=== PATIENT | male | born 1945 | race Caucasian/White ===

== ENCOUNTER → 2018-02-16 06:40 | Outpatient (CLI) | payer MEDICARE, OTHER, SELFPAY ==
--- NOTE | 2018-02-16 06:44 | CT_ITS ---
HEMATURIA SINCE THURSDAY, UNABLE TO URINATE-JUST HAD BLOOD CLOTS, DR TOOK HIM OFF ASPIRIN, HAS ANSARI CATHETER SINCE THURSDAY, SURG-LUIS CARLOS, RT INGUINAL HERNIA REPAIR. HX-HTN. TECHNIQUE: Helically acquired images were obtained through the abdomen both before and after IV contrast, using the CT urogram protocol. CT pelvis imaging performed following IV contrast injection. Delayed excretory images were obtained. 2D and 3D reformats were performed. A radiation dose optimization technique was used for this scan. IV Contrast dosage and agent: 100 cc Isovue-300 contrast COMPARISON: None FINDINGS: Both kidneys are normal in position. One-2 mm tiny calyceal stone at the upper pole of the left kidney. With contrast injection, bilateral renal excretion of contrast without evidence of hydronephrosis or suspicious renal lesion. Multiple bilateral small parapelvic renal cysts. Adrenal glands are not enlarged. Lung bases: Right middle lobe tiny calcified granuloma. No pleural effusion. Cholecystectomy. No biliary dilatation. The liver, spleen, and pancreas show no CT abnormality. Abdominal aorta is atherosclerotic and is normal in caliber. IVC is patent. No ascites or retroperitoneal lymphadenopathy. GI tract: No obstruction Pelvis: Ansari balloon catheter in place with circumferential thickening of the urinary bladder wall which measures approximately 2.5 cm in diameter. Possible bladder tumor. The urinary bladder, in addition, shows bilateral diverticula measuring approximately 8.8 x 4.4 cm on the right and 3.4 x 3.7 cm on the left. The bladder wall diverticula do not show corresponding mural thickening. The right-sided diverticulum shows dependent debris, likely blood clots The prostate shows no significant enlargement. The pelvis shows no free fluid or lymphadenopathy. Fat-containing left inguinal hernia. Ventral wall: Fat-containing umbilical hernia and the hernia sac also shows a circumscribed cyst like structure which measures 2.4 cm in maximal dimension. CT/CT Abd/Pelvis W/WO Contrast IMPRESSION: 1. Ansari balloon catheter with circumferential mural thickening of the urinary bladder. Possible bladder wall tumor. 2. Bilateral bladder wall diverticula, larger on the right, with probable dependent blood clots within the right side diverticulum. Bilateral diverticula, however, do not show mural thickening as with the remaining bladder. 3. Left renal tiny 1-2 mm stone. Negative for hydronephrosis or hydroureter. 4. Umbilical and left inguinal hernias. Details above. Individualized dose optimization techniques were used for this CT. at 0752 Reported and signed by: Donte Horta MD Electronically Signed: Donte Horta, at 7:50 EST Tel , Service support ,
[2018-02-16 07:00] LABS: CREATININE FINGERSTICK 0.9 mg/dL (0.70-1.30); EGFR FINGERSTICK > 60.0000 mL/min (>60)
== END ==
PROVIDERS: Family Provider Family Medicine; PCP Family Medicine; Referring Provider Urology; Visit Provider Urology
DX: R31.0 Gross hematuria (principal)
CPT/HCPCS: 74178; Q9967

== ENCOUNTER → 2018-02-23 16:32 | Outpatient (CLI) | payer MEDICARE, SELFPAY | PROVIDERS: Family Provider Family Medicine; PCP Family Medicine; Referring Provider Urology; Visit Provider Urology | DX: R31.9 Hematuria, unspecified (principal) | CPT/HCPCS: 87086; 87088; 87186 ==

== ENCOUNTER 2018-03-12 09:34 | Inpatient (IN) | payer MEDICARE, OTHER, SELFPAY ==
[2018-03-09 10:14] VITALS: BP 129/80; PULSE 56; RESP 16; TEMP 36.6; O2SAT 98; BMI 34.0
--- NOTE | 2018-03-09 10:28 | SDCEKG_ITS ---
Test Reason : Blood Pressure : / mmHG Vent. Rate : 057 BPM Atrial Rate : 057 BPM P-R Int : 194 ms QRS Dur : 084 ms QT Int : 432 ms P-R-T Axes : -05 -39 -03 degrees QTc Int : 420 ms Sinus bradycardia Left axis deviation Abnormal ECG Confirmed by RAMONA PEREZ, JAY ([id number]), index editor MERCY FAJARDO ([id number]) on 03/12/2018 2:50:19 PM Referred By: Josemanuel Block Confirmed By:JAY GREENE MD
[2018-03-09 11:40] LABS: Hematocrit 40.7 % (40-54); Hemoglobin 13.3 g/dl (13.0-16.5); Mean Corp Hgb Conc 32.7 g/gl (32-36); Mean Corpuscular Hgb 28.4 pg (27.0-32.0); Mean Platelet Vol. 8.9 fl (6.2-12.0); Platelet Count 360 K/mm3 (150-450); RBC Distribution Width SD 44.5 fl (35.1-43.9); Red Blood Count 4.68 M/mm3 (4.6-6.2); Scan Indicated on CBC? Y/N NO; White Blood Count 11.6 K/mm3 (4.4-11.0)
[2018-03-09 12:04] LABS: Anion Gap 7 (5-15); BUN 20 mg/dL (7-18); BUN/Creat Ratio 22.3 RATIO (10-20); Calcium,Total 8.1 mg/dL (8.5-10.1); Chloride 105 mmol/L (98-107); EST Glomerular Filtration Rate 88 mL/min (>60); Est Glom Filt Rate - Afr Amer 107 mL/min (>60); Glucose 105 mg/dL (74-106); Sodium Level 138 mmol/L (136-145)
[2018-03-12] VITALS (9 sets, daily range): BP systolic 95–141; BP diastolic 66–90; PULSE 58–68; RESP 16–18; TEMP 36.2–36.5; O2SAT 93–97; BMI 34.0
[2018-03-12 10:28] LABS: Anion Gap 7 (5-15); BUN 13 mg/dL (7-18); BUN/Creat Ratio 13.7 RATIO (10-20); Calcium,Total 8.3 mg/dL (8.5-10.1); Chloride 103 mmol/L (98-107); Creatinine, Serum 0.95 mg/dL (0.70-1.30); EST Glomerular Filtration Rate 83 mL/min (>60); Est Glom Filt Rate - Afr Amer 101 mL/min (>60); Estimated Creatinine Clearance 72.57 ml/min; Glucose 112 mg/dL (74-106); Potassium 3.9 mmol/L (3.5-5.1); Sodium Level 138 mmol/L (136-145)
--- NOTE | 2018-03-12 12:00 | PROS_PTH ---
PATIENT: SUMAYA JIMENEZ LOC: MS3 U#:[id number] AGE/SX: 72/M ROOM: [facility] [place] RE03/12/[address]: Dr. Josemanuel Block MD : [id number] BED: 1 DIS: 03/14/2018 SPEC #: [id number] RECD: 03/15/18 09:05 STATUS: ADOLFO DON #: [id number] RADHA: 03/12/18 12:[address]: Josemanuel Block DEPT: SURGICAL PATHOLOGY RECD BY: Nick Conner ENTERED: 03/15/18 12:53 SP TYPE: TURP OTHR DR: Dr. Niraj Segovia MD Tissues: B - Prostate, NOS A - Urinary bladder, NOS Procedures: Surgery Specimen Level IV HEADER OPERATION: Laparoscopic robotic assisted simple prostatectomy PRE-OP DIAGNOSIS: Diverticulum of bladder, BPH with lower urinary tract symptoms TISSUE SUBMITTED: A - Bladder diverticulum, B - Prostate tissue MICROSCOPIC DIAGNOSIS A. Urinary bladder diverticulum, excision: Urothelium lined cyst with associated mild chronic inflammation consistent with diverticulum. B. Prostate, biopsy: Fibromuscular tissue with mild chronic inflammation. No evidence of malignancy. AM:duncan 03/16/18 MICROSCOPIC DESCRIPTION Slides are reviewed. GROSS DESCRIPTION A - Received in fixative is one container labeled with the patient's name and designated bladder diverticulum. The specimen consists of two irregular fragments of pink-worrell saccular soft tissue that in aggregate measure 8 x 6 x 1.5 cm. Serial sections do not reveal distinct nodular mass lesions. Veterans' Coordinator sections are submitted in three cassettes. B - Received in fixative is one container labeled with the patient's name and designated prostate tissue. The specimen consists of two irregular fragments of rubbery light to dark worrell soft tissue that in aggregate measure 3 x 2.5 x 1.5 cm. Sections reveal homogenous worrell, cut surfaces. No mass lesions are identified. Both fragments are sectioned and submitted in its entirety in two cassettes. / AM:duncan 03/15/18 TC:3 CPT: 67585 x2
[2018-03-12] MEDS: Cefazolin 2 GM in 0.9% Normal Saline 100 ML IV (12:36)
[2018-03-12] MEDS: Bupivacaine Mpf 0.5% 30 ML VIAL (16:14)
--- NOTE | 2018-03-12 16:18 | OP.PCM_ITS ---
Report of Operation Date of Procedure: 03/12/18 Pre-Operative Diagnosis: BPH with obstruction large bladder diverticulum x2 Post-Operative Diagnosis: The same Surgery/Procedure Performed:: Laparoscopic robotic assisted removal of bladder diverticulum x2 and simple prostatectomy, right ureteral cath placement. Description of Surgical Findings:: 72-year-old male was found to have a very large bladder diverticulum on the right side of the bladder and also left side of the bladder on cystoscopy was found to have a very scarred down urethral channel he had a prior TURP long time ago. Because of this I recommended we undergo a laparoscopic robotic diverticulectomy to remove both the diverticulum's that are holding the stagnant urine causing infections and also to resect the prostate open and to do a simple enucleation of the small prostate. 72-year-old male taken back to the operating room at the smooth induction of general anesthesia he was placed supine on the table, his abdomen was shaved and prepped and draped in usual sterile fashion, he was placed in dorsolithotomy position, I then infiltrated the skin with lidocaine, advanced the Veress needle after making an incision in the skin into the peritoneal cavity, insufflated the peritoneal cavity CO2 gas, we then placed our camera right and left arm trochars emergency veterinary assistant trocar suction trocar and air seal port. I then dissected the sigmoid colon off the lateral wall. I then placed a 20 Nauruan catheter into the bladder we filled the bladder up with saline and he could see a large diverticulum in the right side of the bladder dissected onto this large diverticulum and very carefully dissected all the way to the bladder and then encountered the diverticulum it was a very large diverticulum did not have to remove the entire mucosa just dissected to the neck of the diverticulum and circumferentially around the neck of the diverticulum the right side. The diverticulum itself is quite larger than the bladder capacity. After doing this then I incised the bladder in the midline clamshell in the bladder open then I tacked the bladder open with stitches and then inside identified the ureteral orifice cannulated the ureters with a Glidewire and was effluxing clear urine there is no injury to the left ureteral orifice or the right ureteral orifice or the right ureter. I then closed the diverticulum inside the bladder with interrupted 2-0 Vicryl stitches. I then proceeded with the prostate he had a very small prostate very scarred in prostate basically I excised the prostate adenoma enucleated this very carefully from the prostate very short distance scarred in quite well circumferentially dissected all the way around the urethra until I got the scar tissue and the prostate tissue out and then identified the urethral channel. Sphincter was left intact I then reapproximated the mucosa edges down to the to the urethra in order to prevent another bladder neck contracture once this was accomplished and he had a nice channel wide open channel through the prostate and it appeared to be proximal to the sphincter with with making sure that the sphincter had been spared and dissected out the prostate tissue. I then closed the bladder clamshell and then filled the bladder back up and immediately recognized the large diverticulum off the left side of the bladder then dissected the bladder diverticulum of the left side this is taken off completely until I found the neck going into the bladder excised the neck and then handed off the tissue and then we closed the diverticular neck with interrupted V lock stitches after completing this we had excised both the right and left large bladder diverticulum we did a excised the scar tissue and prosthetic tissue and and and brought the mucosal edges down to the sphincter the catheter was in place we closed the Dung Pickering stitch using Cardizem stitch to close the 10 12 trocar site and the umbilical site we left the drain in place to catch as any excess fluid in the abdomen patient anesthetic was reversed and currently is still in anesthesia still having his anesthesia reversed. Type of Anesthesia:: General Drains: cummingsSHIRIN - Admit VTE Documentation VTE Present on Admission: No VTE Mechan Device Prophylaxis: SCD's
[2018-03-12] MEDS: 0.45% Normal Saline 1,000 ML 125 ML IV (18:13)
[2018-03-12] MEDS: Ketorolac 15 MG/ML Vial IV ×2 (18:14→23:01)
[2018-03-12] MEDS: Morphine 2 MG/ML Syringe IV ×2 (19:01→21:11)
[2018-03-12] MEDS: Docusate Sodium 100 MG Capsule PO (21:11)
[2018-03-12] MEDS: Ciprofloxacin 400 MG/200 ML BAG 200 MG IV (21:11)
[2018-03-13] MEDS: 0.45% Normal Saline 1,000 ML 125 ML IV (02:23)
[2018-03-13 02:24] VITALS: BP 100/62; PULSE 60; RESP 18; TEMP 37; O2SAT 95
[2018-03-13] MEDS: Ketorolac 15 MG/ML Vial IV ×3 (05:57→21:23)
[2018-03-13] MEDS: Enoxaparin 40 MG/0.4 ML Syringe SC (05:57)
[2018-03-13] MEDS: Morphine 2 MG/ML Syringe IV (07:29)
[2018-03-13 09:12] VITALS: BP 94/56; PULSE 63; RESP 16; TEMP 36.6; O2SAT 93
[2018-03-13] MEDS: Pantoprazole Sodium 20 MG Tablet PO (09:44)
[2018-03-13] MEDS: Docusate Sodium 100 MG Capsule PO ×2 (09:44→21:21)
[2018-03-13] MEDS: Ciprofloxacin 400 MG/200 ML BAG 200 MG IV ×2 (09:44→21:27)
[2018-03-13] MEDS: Magnesium Hydroxide 30 ML UDC 15 ML PO (09:44)
--- NOTE | 2018-03-13 10:45 | CM.UR ---
RN ROLDAN assessment: Face to Face with patient for initial transition planning/care coordination assessment. RN CM introduced self and role at [facility], pt voices understanding and consents to assessment at this time. Pt is sitting up in bed with no distress noted. Pt is A/Ox4 at this time and answers all questions appropriately at this time. Care providers, pharmacy, and demographics verified/updated at this time. PCP: Juliette Specialists: Umair Mcqueen Pharmacy: [facility] Insurance: [facility] Living Will/HPOA: Pt states has LW/HPOA but they are currently not on file at [facility]. Pt states , [place], [facility]: [place]ne. Living Arrangements: Pt states lives with in 2 story home. Has first floor bedroom and bathroom. Prior to admission no difficulty with ADLS and IADLs. Able to do stairs w/o difficulty. Transportation: Pt states drives self and states no transportation concerns at this time. DME/HHC: Pt denies any DME at home and denies need for anything at this time. Pt states no hx of HHC and SNF in the past. Pt states no concerns with going home at time of discharge. Pt states no further concerns/needs at this time. CM will be available should any discharge planning/needs arise. Advised pt to ask for CM if any further questions/concerns/needs arise, voices understanding. Plan: Home Saud Kurtz RN, CCM.
--- NOTE | 2018-03-13 10:54 | NURSING ---
PT AMBULATING IN [place].
[2018-03-13] MEDS: 0.9% NaCl Peripheral Flush Adult/Peds IV ×2 (12:38→21:27)
--- NOTE | 2018-03-13 13:00 | PCM.PROGNOTE ---
Subjective: Tolerating regular diet but not passing any gas no flatus yet no bowel movements - Physical Exam General: Alert, Oriented x3, Cooperative HEENT: Atraumatic, PERRLA, EOMI, Normocephalic Neck: Supple, No JVD, Negative Carotid Bruits Lungs: Clear to auscultation, Normal air movement Cardiovascular: Regular rate, No murmurs Abdomen: Bowel Sounds Present, Soft, Non Tender Extremities: No edema, Capillary Refill Less than 3 Seconds Skin: No rashes, No breakdown Musculoskeletal: No Tenderness to Palpation of Joints or Extremities Neurological: Cranial nerves II-XII grossly intact Psych/Mental Status: Normal Affect, Appropriate Vital Signs Temp Pulse Resp BP Pulse Ox 97.9 F 63 16 94/56 L 93 03/13/18 09:12 03/13/18 09:12 03/13/18 09:12 03/13/18 09:12 03/13/18 09:12 Oxygen Flow Rate (L/min) 2 Oxygen Delivery Method Room Air Weight: 107.7 kg Body Mass Index (BMI) 34.0 Intake and Output for Last 24 Hours 03/11/18 03/12/18 03/13/18 23:59 23:59 23:59 Intake Total 2400 / 2400 1785 / 1785 Output Total 140 / 140 1500 / 1500 Balance 2260 / 2260 285 / 285 Medical Necessity - Tobacco Use Smoking Status: Never smoker Assessment/Plan Abdomen slightly distended but soft waiting for gas to pass, will give him a suppository if he fails to pass gas by tomorrow. Regular diet ambulate await for return of bowel function and then probably can go home with a catheter likely tomorrow.
[2018-03-13 13:42] VITALS: BP 109/54; PULSE 63; RESP 16; TEMP 36.6; O2SAT 94
[2018-03-13] MEDS: HYDROcodone Bitartrate/Apap 5/325 Tablet PO ×2 (15:49→21:19)
[2018-03-13 20:20] VITALS: BP 142/81; PULSE 65; RESP 16; TEMP 36.4; O2SAT 97
[2018-03-14 02:05] VITALS: BP 121/79; PULSE 65; RESP 16; TEMP 36.8; O2SAT 95
[2018-03-14] MEDS: HYDROcodone Bitartrate/Apap 5/325 Tablet PO ×3 (02:10→12:26)
[2018-03-14] MEDS: Enoxaparin 40 MG/0.4 ML Syringe SC (06:16)
[2018-03-14 08:27] VITALS: BP 139/83; PULSE 70; RESP 16; TEMP 36.7; O2SAT 94
[2018-03-14] MEDS: Doxazosin 4 MG Tablet 8 MG PO (09:18)
[2018-03-14] MEDS: Atenolol 50 MG Tablet PO (09:19)
[2018-03-14] MEDS: Docusate Sodium 100 MG Capsule PO (09:19)
[2018-03-14] MEDS: Ciprofloxacin 400 MG/200 ML BAG 200 MG IV (09:22)
[2018-03-14] MEDS: Pantoprazole Sodium 20 MG Tablet PO (09:22)
[2018-03-14] MEDS: Magnesium Hydroxide 30 ML UDC 15 ML PO (09:22)
--- NOTE | 2018-03-14 13:11 | PCM.DC.URO ---
Discharge Diet: Light diet - advance as tolerated Discharge Activity: May not drive while taking narcotic pain medications., May Shower May shower in (days): 1 May resume sexual activity in: 6 weeks Lifting Restrictions: No Lifting. Call your doctor if your incision/area has: Continuous Slow Oozing, Sudden Increased Bleeding, Increased Pain/ Swelling, Increased Redness, Foul Smelling Discharge, Swelling at the incision site Suture Line Care: Avoid Pulling/Pushing, Avoid Pinching/Bending Catheter: Cummings to leg bag, Cummings to large bag Drain: [place] Additional Instructions: Home wit cummings catheter Allergies/Adverse Reactions: Allergies No Known Allergies Allergy (Verified 03/12/18 10:04) Medications to take at Discharge Amoxicillin/Potassium Clav [Amox-Clav 875-125 mg Tablet] 1 each PO BID 03/09/18 Aspirin E.C. [Ecotrin] 81 mg PO DAILY@0800 03/09/18 Atenolol [Tenormin (beta shubham)] 50 mg PO DAILY 03/09/18 Doxazosin Mesylate [Cardura] 8 mg PO DAILY 03/09/18 Fluticasone Propionate [Flonase Allergy Relief] 9.9 ml NS PRN PRN 03/09/18 Multivit-Min/FA/Lycopen/Lutein [Centrum Silver Tablet] 1 each PO DAILY 03/09/18 Primary Care Physician: Niraj Segovia MD [Primary Care Provider] - Test Results: Test results from this visit will be discussed in further detail at your follow-up appointment, if applicable. Please Follow Up With: Josemanuel Block MD When: in 10 days, please call to make an appointment.
--- NOTE | 2018-03-14 13:14 | DCINST_ITS ---
Discharge Diet: Light diet - advance as tolerated Discharge Activity: May not drive while taking narcotic pain medications., May Shower May shower in (days): 1 May resume sexual activity in: 6 weeks Lifting Restrictions: No Lifting. Call your doctor if your incision/area has: Continuous Slow Oozing, Sudden Increased Bleeding, Increased Pain/ Swelling, Increased Redness, Foul Smelling Discharge, Swelling at the incision site Suture Line Care: Avoid Pulling/Pushing, Avoid Pinching/Bending Catheter: Cummings to leg bag, Cummings to large bag Drain: [place] Additional Instructions: Home wit cummings catheter Allergies/Adverse Reactions: Allergies No Known Allergies Allergy (Verified 03/12/18 10:04) Medications to take at Discharge Amoxicillin/Potassium Clav [Amox-Clav 875-125 mg Tablet] 1 each PO BID 03/09/18 Aspirin E.C. [Ecotrin] 81 mg PO DAILY@0800 03/09/18 Atenolol [Tenormin (beta shubham)] 50 mg PO DAILY 03/09/18 Doxazosin Mesylate [Cardura] 8 mg PO DAILY 03/09/18 Fluticasone Propionate [Flonase Allergy Relief] 9.9 ml NS PRN PRN 03/09/18 Multivit-Min/FA/Lycopen/Lutein [Centrum Silver Tablet] 1 each PO DAILY 03/09/18 Primary Care Physician: Niraj Segovia MD [Primary Care Provider] - Test Results: Test results from this visit will be discussed in further detail at your follow- up appointment, if applicable. Please Follow Up With: Josemanuel Block MD When: in 10 days, please call to make an appointment.
[2018-03-14 13:51] VITALS: BP 107/65; PULSE 62; RESP 16; TEMP 36.7; O2SAT 94
== END 2018-03-14 15:05 | disposition home or self-care (01) | DRG 707 ==
LOC: ACINP 09:36 → MS3 13:22
PROVIDERS: Admitting Provider Urology; Family Provider Family Medicine; PCP Family Medicine; Referring Provider Urology; Visit Provider Urology
PROC: 0VT04ZZ Resection of Prostate, Percutaneous Endoscopic Approach (ICD-10-PCS; CPT 55867; principal; 2018-03-12 11:40)
DX: N40.1 Benign prostatic hyperplasia with lower urinary tract symptoms (principal); N13.8 Other obstructive and reflux uropathy; N32.3 Diverticulum of bladder
CPT/HCPCS: 36415; 80048; 85027; 86850; 86900; 88305; 93005; 97802; J7030; J7120; A4216; C1769; J0744; J2405

== ENCOUNTER → 2018-10-25 09:12 | Outpatient (CLI) | payer MEDICARE, OTHER, SELFPAY ==
[2018-03-12 17:51] VITALS: BMI 34.0
[2018-10-25 10:46] LABS: PSA,Total - Annual Screen 0.18 ng/mL (0.00-4.00)
== END ==
PROVIDERS: Family Provider Family Medicine; PCP Family Medicine; Referring Provider Urology; Visit Provider Urology
DX: Z12.5 Encounter for screening for malignant neoplasm of prostate (principal)
CPT/HCPCS: 36415; 84153; G0103

== ENCOUNTER → 2019-10-25 09:15 | Outpatient (CLI) | payer MEDICARE, OTHER, SELFPAY ==
[2018-03-12 17:51] VITALS: BMI 34.0
[2019-10-25 10:40] LABS: PSA,Total - Annual Screen 0.19 ng/mL (0.00-4.00)
== END ==
PROVIDERS: PCP Family Medicine; Referring Provider Urology; Visit Provider Urology
DX: Z12.5 Encounter for screening for malignant neoplasm of prostate (principal)
CPT/HCPCS: 36415; 84153; G0103

== ENCOUNTER → 2020-11-19 15:16 | Outpatient (CLI) | payer MEDICARE, OTHER, SELFPAY ==
[2020-11-19 16:37] LABS: PSA,Total - Annual Screen 0.26 ng/mL (0.00-4.00)
== END ==
PROVIDERS: PCP Family Medicine; Visit Provider Nurse Practitioner Adult Health
DX: Z12.5 Encounter for screening for malignant neoplasm of prostate (principal)
CPT/HCPCS: 36415; 84153; G0103